=== PATIENT | male | born 1965 | race Caucasian/White ===

== ENCOUNTER → 2024-04-04 | Outpatient (CLI) | payer SELFPAY ==
[2024-04-04 14:49] LABS: T4, Free (Free Thyroxine) 1.22 ng/dL (0.80-1.80)
== END | disposition home or self-care (01) ==
LOC: LABWHC1 11:49
PROVIDERS: ATTEND Family Medicine
DX: F41.1 Generalized anxiety disorder (principal)
CPT/HCPCS: 36415; 84436; 84439; 84443; 84481

== ENCOUNTER 2024-08-14 19:19 | Inpatient (IN) | payer OTHER ==
--- NOTE | 2024-08-14 19:43 | ED ---
Abdominal Pain HPI - General Chief Complaint: Abdominal Pain Stated Complaint: ABD Pain Time Seen by Provider: 08/14/24 19:25 Source: patient, RN notes reviewed Mode of arrival: ambulatory Limitations: no limitations - History of Present Illness Initial Comments: This is a 58-year-old male who presents to the emergency department for abdominal pain. States that the pain started a couple of days ago. He is having difficulty urinating and is only going small amounts. Also having difficulty with bowel movements. He has been constipated for the last several days and only producing very small pieces of stool. He is also noted to have significant tremors on exam. His sister states that this may be a result of his psychiatric medication withdrawals. He does have an appointment with a neurologist next month. Additionally, they state that his thyroid is off and they just increased his medication dose due to his TSH being too high and wonder if that may be contributing to his symptoms. Abdominal pain is in the mid to lower abdomen, not worse on any particular side. He does have some associated nausea, denies any vomiting. MD Complaint: abdominal pain - Related Data Home Medications Medication Instructions Recorded Confirmed ALPRAZolam [Xanax] 2 mg PO TID 08/14/24 08/14/24 Cimetidine [Tagamet] 600 mg PO Q12H 08/14/24 08/14/24 Thyroid,Pork [Marine Service Station Attendant Thyroid 120] 120 mg PO DAILY 08/14/24 08/14/24 buPROPion XL [Wellbutrin XL] 150 mg PO DAILY 08/14/24 08/14/24 hydrOXYzine pamoate [Vistaril] 50 mg PO TID PRN 08/14/24 08/14/24 Allergies Allergy/AdvReac Type Severity Reaction Status Date / Time No Known Allergies Allergy Verified 08/14/24 19:52 Review of Systems ROS Statement: Those systems with pertinent positive or pertinent negative responses have been documented in the HPI. ROS Other: All systems not noted in ROS Statement are negative. Past Medical History Past Medical History: Thyroid Disorder Additional Past Medical History / Comment(s): tardive dyskinesia, panic disorder History of Any Multi-Drug Resistant Organisms: None Reported Past Surgical History: No Surgical Hx Reported Past Psychological History: Anxiety, Depression, Panic Disorder Smoking Status: Current every day smoker Past Alcohol Use History: None Reported Past Drug Use History: None Reported General Exam Limitations: no limitations General appearance: alert, in no apparent distress Head exam: Present: atraumatic, normocephalic, normal inspection Respiratory exam: Present: normal lung sounds bilaterally. Absent: respiratory distress, wheezes, rales, rhonchi, stridor Cardiovascular Exam: Present: regular rate, normal rhythm, normal heart sounds. Absent: systolic murmur, diastolic murmur, rubs, gallop, clicks GI/Abdominal exam: Present: soft, tenderness (Lower abdomen), normal bowel sounds. Absent: distended Neurological exam: Present: alert, oriented X3, CN II-XII intact, other (Whole body tremors) Psychiatric exam: Present: normal affect, normal mood Skin exam: Present: warm, dry, intact, normal color. Absent: rash Course Vital Signs 08/14/24 08/14/24 08/14/24 19:20 19:58 20:14 Temperature 97.9 F Pulse Rate 69 75 74 Respiratory 16 16 15 Rate Blood Pressure 121/80 101/84 122/92 O2 Sat by Pulse 98 96 96 Oximetry Medical Decision Making - Medical Decision Making This is a 58 year old male who presents to the emergency department for abdominal pain. Was pt. sent in by a medical professional or institution? @ -No Did you speak to anyone other than the patient for history? @ -His sister provided the information about his thyroid levels and tremors. Did you review nursing and triage notes? @ -Yes, and I agree, it is accurate with regards to the patient's symptoms. Were old charts reviewed? @ -No Differential Diagnosis? @ -Differential Abdominal Pain Men: Appendicitis, cholecystitis, diverticulosis, ischemic bowel, pancreatitis, hepatitis, UTI, gastroenteritis, AAA, incarcerated hernia, bowel obstruction, constipation, inflammatory bowel, hepatitis, peptic ulcer disease, splenic infarction, perforated viscus, testicular torsion, this is not meant to be an all-inclusive list EKG interpreted by me (3pts min.)? @ -EKG interpreted by me demonstrating the following: Sinus rhythm. Ventricular rate 60 bpm, [place] interval 166 ms, QRS duration 97 ms, QTc 429 ms. X-rays interpreted by me (1pt min.)? @ -Not obtained CT interpreted by me (1pt min.)? @ -CT scan of the abdomen and pelvis obtained. My interpretation identifies no evidence of bowel wall thickening or free air. U/S interpreted by me (1pt. min.)? @ -Not obtained What testing was considered but not performed? (CT, X-rays, U/S, labs)? Why? @ -None What meds were considered but not given? Why? @ -None Did you discuss the management of the patient with other professionals? @ -Yes, Dr. Mclaughlin, who accepts the patient for admission. Did you reconcile home meds? @ -Yes Was smoking cessation discussed for >3mins.? @ -No Was critical care preformed (if so, how long)? @ -No Were there social determinants of health that impacted care today? How? (Homelessness, low income, unemployed, alcoholism, drug addiction, transportation, low edu. Level, literacy, decrease access to med. care, custodial, rehab)? @ -No Was there de-escalation of care discussed even if they declined? (Discuss DNR or withdrawal of care, Hospice)? @ -No What co-morbidities impacted this encounter? (DM, HTN, Smoking, COPD, CAD, Cancer, CVA, Hep., AIDS, mental health diagnosis, sleep apnea, morbid obesity)? @ -Thyroid disorder, tardive dyskinesia Was patient admitted / discharged? @ -Admitted. Lab work demonstrates hyponatremia with a sodium of 122. TSH elevated at 44. Free T4 0.62. Bladder scan performed demonstrating 797 mL of urine. Irvin catheter was subsequently placed. Urinalysis negative for signs of infection. CT scan of the abdomen and pelvis reveals no acute intra- abdominal process. Patient and his sister deny any known problems with hyponatremia in the past. This could be related to the thyroid, the cause is not entirely clear at this point. However, given the level of the hyponatremia, patient was admitted to medicine for further management. Consult placed for nephrology. Case discussed with ED attending Dr. Zuluaga. Undiagnosed new problem with uncertain prognosis? @ -None Drug Therapy requiring intensive monitoring for toxicity (Heparin, Nitro, Insulin, Cardizem)? @ -None Were any procedures done? @ -None Diagnosis/symptom? @ -Hyponatremia Acute, or Chronic, or Acute on Chronic? @ -Acute Uncomplicated (without systemic symptoms) or Complicated (systemic symptoms)? @ -Complicated Side effects of treatment? @ -None Exacerbation, Progression, or Severe Exacerbation] @ -Not applicable Poses a threat to life or bodily function? @ -Yes, if his sodium continues to decrease it can have life threatening consequences - Lab Data Result diagrams: 08/14/24 19:53 08/14/24 19:53 Lab Results 08/14/24 08/14/24 08/14/24 Range/Units 19:53 19:53 19:53 WBC 7.5 (3.8-10.6) k/uL RBC 4.58 (4.30-5.90) m/uL Hgb 13.8 (13.0-17.5) gm/dL Hct 38.7 L (39.0-53.0) % MCV 84.4 (80.0-100.0) fL MCH 30.1 (25.0-35.0) pg MCHC 35.7 (31.0-37.0) g/dL RDW 11.2 L (11.5-15.5) % Plt Count 254 (150-450) k/uL MPV 6.3 Neutrophils % 51 % Lymphocytes % 34 % Monocytes % 8 % Eosinophils % 4 % Basophils % 1 % Neutrophils # 3.8 (1.3-7.7) k/uL Lymphocytes # 2.6 (1.0-4.8) k/uL Monocytes # 0.6 (0-1.0) k/uL Eosinophils # 0.3 (0-0.7) k/uL Basophils # 0.1 (0-0.2) k/uL Sodium 122 L (137-145) mmol/L Potassium 4.2 (3.5-5.1) mmol/L Chloride 91 L (98-107) mmol/L Carbon Dioxide 22 (22-30) mmol/L Anion Gap 9 mmol/L BUN 7 L (9-20) mg/dL Creatinine 0.95 (0.66-1.25) mg/dL Est GFR (CKD-EPI)AfAm >90 (>60 ml/min/1.73 sqM) Est GFR (CKD-EPI)NonAf 89 (>60 ml/min/1.73 sqM) Glucose 82 (74-99) mg/dL Plasma Lactic Acid Phill 0.7 (0.7-2.0) mmol/L Calcium 8.7 (8.4-10.2) mg/dL Phosphorus (2.5-4.5) mg/dL Magnesium (1.6-2.3) mg/dL Total Bilirubin 0.3 (0.2-1.3) mg/dL AST 34 (17-59) U/L ALT 27 (4-49) U/L Alkaline Phosphatase 61 (38-126) U/L Total Protein 7.0 (6.3-8.2) g/dL Albumin 4.3 (3.5-5.0) g/dL Amylase 43 (30-110) U/L Lipase 82 (23-300) U/L TSH 44.000 H (0.465-4.680) mIU/L Free T4 0.62 L (0.78-2.19) ng/dL Urine Color Urine Appearance (Clear) Urine pH (5.0-8.0) Ur Specific [place] (1.001-1.035) Urine Protein (Negative) Urine Glucose (UA) (Negative) Urine Ketones (Negative) Urine Blood (Negative) Urine Nitrite (Negative) Urine Bilirubin (Negative) Urine Urobilinogen (<2.0) mg/dL Ur Leukocyte Esterase (Negative) 08/14/24 08/14/24 Range/Units 19:53 20:00 WBC (3.8-10.6) k/uL RBC (4.30-5.90) m/uL Hgb (13.0-17.5) gm/dL Hct (39.0-53.0) % MCV (80.0-100.0) fL MCH (25.0-35.0) pg MCHC (31.0-37.0) g/dL RDW (11.5-15.5) % Plt Count (150-450) k/uL MPV Neutrophils % % Lymphocytes % % Monocytes % % Eosinophils % % Basophils % % Neutrophils # (1.3-7.7) k/uL Lymphocytes # (1.0-4.8) k/uL Monocytes # (0-1.0) k/uL Eosinophils # (0-0.7) k/uL Basophils # (0-0.2) k/uL Sodium (137-145) mmol/L Potassium (3.5-5.1) mmol/L Chloride (98-107) mmol/L Carbon Dioxide (22-30) mmol/L Anion Gap mmol/L BUN (9-20) mg/dL Creatinine (0.66-1.25) mg/dL Est GFR (CKD-EPI)AfAm (>60 ml/min/1.73 sqM) Est GFR (CKD-EPI)NonAf (>60 ml/min/1.73 sqM) Glucose (74-99) mg/dL Plasma Lactic Acid Phill (0.7-2.0) mmol/L Calcium (8.4-10.2) mg/dL Phosphorus 3.4 (2.5-4.5) mg/dL Magnesium 1.7 (1.6-2.3) mg/dL Total Bilirubin (0.2-1.3) mg/dL AST (17-59) U/L ALT (4-49) U/L Alkaline Phosphatase (38-126) U/L Total Protein (6.3-8.2) g/dL Albumin (3.5-5.0) g/dL Amylase (30-110) U/L Lipase (23-300) U/L TSH (0.465-4.680) mIU/L Free T4 (0.78-2.19) ng/dL Urine Color Colorless Urine Appearance Clear (Clear) Urine pH 6.5 (5.0-8.0) Ur Specific [place] 1.007 (1.001-1.035) Urine Protein Negative (Negative) Urine Glucose (UA) Negative (Negative) Urine Ketones Negative (Negative) Urine Blood Negative (Negative) Urine Nitrite Negative (Negative) Urine Bilirubin Negative (Negative) Urine Urobilinogen <2.0 (<2.0) mg/dL Ur Leukocyte Esterase Negative (Negative) - Radiology Data Radiology results: report reviewed, image reviewed Disposition Clinical Impression: Hyponatremia Disposition: ADMITTED IP TO THIS HOSP
[2024-08-14] MEDS: SODIUM CHLORIDE 0.9% 500 ML 500 ML IV STA (20:01)
[2024-08-14] MEDS: KETOROLAC 15 MG/ML 1 ML VIAL IVP STA (20:03)
[2024-08-14 20:05] LABS: Basophils # (A) 0.1 k/uL (0-0.2); Basophils % (A) 1 %; Eosinophils # (A) 0.3 k/uL (0-0.7); Eosinophils % (A) 4 %; HCT 38.7 % (39.0-53.0); HGB 13.8 gm/dL (13.0-17.5); Lymphocytes # (A) 2.6 k/uL (1.0-4.8); Lymphocytes % (A) 34 %; MCH 30.1 pg (25.0-35.0); MCHC 35.7 g/dL (31.0-37.0); MCV 84.4 fL (80.0-100.0); Mean Platelet Volume 6.3; Monocytes # (A) 0.6 k/uL (0-1.0); Monocytes % (A) 8 %; Neutrophils # (A) 3.8 k/uL (1.3-7.7); Neutrophils % (A) 51 %; Platelet Count 254 k/uL (150-450); RBC 4.58 m/uL (4.30-5.90); RDW 11.2 % (11.5-15.5); WBC 7.5 k/uL (3.8-10.6)
[2024-08-14] MEDS: ONDANSETRON 4 MG/2 ML VIAL IVP STA (20:05)
[2024-08-14] MEDS: diphenhydrAMINE 50 MG/ML 1 ML VIAL IVP STA (20:07)
[2024-08-14] MEDS: LORazepam 2 MG/ML INJ IV STA (20:08)
[2024-08-14 20:19] LABS: ALT 27 U/L (4-49); AST 34 U/L (17-59); African American GFR (CKD) >90 (>60 ml/min/1.73 sqM); Albumin 4.3 g/dL (3.5-5.0); Alkaline Phosphatase 61 U/L (38-126); Amylase 43 U/L (30-110); Anion Gap 9 mmol/L; Blood Urea Nitrogen 7 mg/dL (9-20); Calcium 8.7 mg/dL (8.4-10.2); Carbon Dioxide 22 mmol/L (22-30); Chloride 91 mmol/L (98-107); Glucose 82 mg/dL (74-99); Lipase 82 U/L (23-300); Non-African American GFR(CKD) 89 (>60 ml/min/1.73 sqM); Potassium 4.2 mmol/L (3.5-5.1); Sodium 122 mmol/L (137-145); Total Bilirubin 0.3 mg/dL (0.2-1.3)
[2024-08-14] MEDS: SODIUM CHLORIDE 0.9% 1,000 ML IV STA (20:39)
[2024-08-14 20:51] LABS: Appearance,Urine Clear (Clear); Bilirubin,Urine Negative (Negative); Blood,Urine Negative (Negative); Color,Urine Colorless; Glucose,Urine (UA) Negative (Negative); Ketones,Urine Negative (Negative); Leukocyte Esterase,Urine Negative (Negative); Nitrite,Urine Negative (Negative); PH, Urine 6.5 (5.0-8.0); Protein,Urine Negative (Negative); Specific Gravity,Urine 1.007 (1.001-1.035); Urobilinogen,Urine <2.0 mg/dL (<2.0)
[2024-08-14 20:56] LABS: Magnesium 1.7 mg/dL (1.6-2.3); Phosphorus 3.4 mg/dL (2.5-4.5)
--- NOTE | 2024-08-14 21:24 | CT ---
EXAMINATION TYPE: CT abdomen pelvis w con DATE OF EXAM: 08/14/2024 8:59 PM COMPARISON: None CLINICAL INDICATION: Male, 58 years old with history of abdominal pain, acute, nonlocalized; Here tod ay for stomach pains that started late yesterday. Sister also reports that he is suffering from "psyc h med withdrawal and tremors." TECHNIQUE: Axial CT abdomen pelvis w con;Sagittal and coronal reformats were created on a separate w orkstation. Contrast used:100 ml mL of Isovue 300 with IV Contrast, (none if empty) Oral contrast used: without Oral Contrast (none if empty) CT DLP: 688.4 mGycm, Automated exposure control for dose reduction was used. FINDINGS: LOWER CHEST: Unremarkable ABDOMEN LIVER: Unremarkable GALLBLADDER AND BILE DUCTS: Unremarkable. PANCREAS: Unremarkable. SPLEEN: Unremarkable. ADRENAL GLANDS: Unremarkable. KIDNEYS AND URETERS: No evidence of hydronephrosis or renal calculus. The ureters are unremarkable. PELVIS BLADDER: Distended urinary bladder with Irvin catheter in place. Gas in the bladder lumen likely seco ndary to Irvin catheter. REPRODUCTIVE: Unremarkable. ABDOMEN & PELVIS STOMACH AND BOWEL: No evidence of bowel obstruction. PERITONEUM/RETROPERITONEUM: No evidence of pneumoperitoneum or free fluid. VASCULATURE: Mild atherosclerotic calcifications are present throughout the abdominal aorta and its b ranches. No evidence of aortic aneurysm. MUSCULOSKELETAL: No acute osseous abnormalities. Mild disc degeneration changes are present throughou t the thoracolumbar spine. LYMPH NODES: No gross evidence for lymphadenopathy. SOFT TISSUE/ABDOMINAL WALL: Unremarkable IMPRESSION: 1. No evidence for acute upper abdominal process. 2. Irvin catheter in place with the central urinary bladder. Correlate for Irvin malfunction. 3. Small hiatal hernia. [facility], , 08/14/2024 9:21 PM
[2024-08-14] MEDS ORDERED: NALOXONE 0.4 MG/ML 1 ML VIAL IV PRN (21:32)
[2024-08-14] MEDS ORDERED: ACETAMINOPHEN TAB 325 MG TAB PO PRN (21:32)
[2024-08-14] MEDS ORDERED: ONDANSETRON 4 MG/2 ML VIAL IVP PRN (21:32)
[2024-08-14 21:47] LABS: T4, Free (Free Thyroxine) 0.62 ng/dL (0.78-2.19)
[2024-08-14] MEDS: FAMOTIDINE 20 MG TAB PO SCH (22:34)
[2024-08-14] MEDS: ALPRAZolam 1 MG TAB PO SCH (22:34)
[2024-08-15] MEDS: KETOROLAC 15 MG/ML 1 ML VIAL IVP PRN (01:37)
[2024-08-15] MEDS: HYDROcodone/APAP 5-325MG 1 EACH TAB PO PRN (05:30)
[2024-08-15] MEDS: PANTOPRAZOLE 40 MG/10 ML VIAL IV SCH (09:45)
[2024-08-15] MEDS: THYROID, PORK 30 MG TAB PO SCH (09:45)
[2024-08-15] MEDS: buPROPion XL 150 MG TAB.ER.24H PO SCH (09:45)
--- NOTE | 2024-08-15 11:23 | P.HPIM ---
History of Present Illness History of present illness; 58-year-old male with a past medical history of hypothyroidism, anxiety, depression, panic disorder, and tardive dyskinesia presents with complaints of abdominal pain. Patient reports for the last few da ys he has had abdominal pain that has progressively gotten worse. Patient reports the pain is located in the lower abdomen, characterizes it as a dull pain that does not radiate anywhere. Patient also admits during this time he has had tremors in the upper extremities that come and go. Patient reports he recently discontinued taking Prozac and Rexulti. Patient also reports his thyroid medication was recently changed and that he recently had a TSH level that was 22. Initial lab work from the ER was significant for WBC 7.5, hemoglobin 13.8, MCV 84.4, sodium 122, chloride 91, creatinine 0.95, TSH 44, free T40.62, UA noncontributory. EKG done in the ER showed heart rate of 60 bpm, no ST segment elevation or depression seen, no T-wave inversions seen. Sinus rhythm, possible right nilesh tricular conduction delay, QTc [address] ABD: No evidence for acute upper abdominal process, Irvin catheter in place with central urinary bladder, and small hiatal hernia. Patient admitted to internal medicine service REVIEW OF SYSTEMS: CONSTITUTIONAL: No fever, no malaise, no fatigue. HEENT: No recent visual problems or hearing problems. Denied any sore throat. CARDIOVASCULAR: No chest pain, orthopnea, PND, no palpitations, no syncope. PULMONARY: No shortness of breath, no cough, no hemoptysis. GASTROINTESTINAL: No diarrhea, no nausea, no vomiting, admits to abdominal pain. NEUROLOGICAL: No headaches, no weakness, no numbness, admits to tremors. HEMATOLOGICAL: Denies any bleeding or petechiae. GENITOURINARY: Denies any burning micturition, frequency, or urgency. MUSCULOSKELETAL/RHEUMATOLOGICAL: Denies any joint pain, swelling, or any muscle pain. ENDOCRINE: Denies any polyuria or polydipsia. The rest of the 14-point review of systems is negative. PHYSICAL EXAMINATION: GENERAL: The patient is alert and oriented x3, not in any acute distress. Well developed, well nourished. HEENT: Pupils are round and equally reacting to light. EOMI. No scleral icterus. No conjunctival pallor. Normocephalic, atraumatic. No pharyngeal erythema. No thyromegaly. CARDIOVASCULAR: S1 and S2 present. No murmurs, rubs, or gallops. PULMONARY: Chest is clear to auscultation b/l, no wheezing or crackles. ABDOMEN: Soft, nontender, nondistended, normoactive bowel sounds. No palpable organomegaly. MUSCULOSKELETAL: No joint swelling or deformity. EXTREMITIES: No cyanosis, clubbing, or pedal edema. NEUROLOGICAL: Gross neurological examination did not reveal any focal deficits. SKIN: No rashes. Assessment & Plan: Acute: #Hyponatremia: Potentially secondary to hypothyroidism versus medication side effect versus unknown etiology versus poor oral intake Patient was recently on Rexulti and Prozac, both which can cause SIADH, has since discontinued both medications. Currently holding fluids Ordered serum and urine osmolality, Urine sodium, and urine uric acid Based on results of urine testing and osmolality we will consider giving fluids Continue to monitor #Hypothyroidism: Increased [place] Thyroid 250 mg p.o. daily TSH 44 on admission, was 22 1 month ago Continue to monitor #Tremors: Potentially secondary to hypothyroidism versus/and hyponatremia Expect tremors to resolve with improvement in hyponatremia and better control of hypothyroidism Continue to monitor Chronic: #Anxiety: Continue home medication #Depression: Continue home medication F: None E: None N: Regular diet A: Normally ambulates unassisted DVT ppx: Lovenox 40 SQ daily GI ppx: Protonix 40 mg IV daily Dispo: Pending clinical course Jey Portillo MD PGY-1 FM Dictation was produced using [employer]ap[employer] dictation software. please excuse any grammatical, word or spelling errors. Past Medical History Past Medical History: Thyroid Disorder Additional Past Medical History / Comment(s): tardive dyskinesia, panic disorder History of Any Multi-Drug Resistant Organisms: None Reported Past Surgical History: No Surgical Hx Reported Past Psychological History: Anxiety, Depression, Panic Disorder Smoking Status: Current every day smoker Past Alcohol Use History: None Reported Past Drug Use History: None Reported Medications and Allergies Home Medications Medication Instructions Recorded Confirmed Type ALPRAZolam [Xanax] 2 mg PO TID 08/14/24 08/14/24 History Cimetidine [Tagamet] 600 mg PO Q12H 08/14/24 08/14/24 History Thyroid,Pork [Life Care Planner Thyroid 120] 120 mg PO DAILY 08/14/24 08/14/24 History buPROPion XL [Wellbutrin XL] 150 mg PO DAILY 08/14/24 08/14/24 History hydrOXYzine pamoate [Vistaril] 50 mg PO TID PRN 08/14/24 08/14/24 History Allergies Allergy/AdvReac Type Severity Reaction Status Date / Time No Known Allergies Allergy Verified 08/14/24 19:52 Physical Exam Vitals: Vital Signs Temp Pulse Resp BP Pulse Ox 08/15/24 05:23 100/72 08/15/24 05:19 97.8 F 68 17 96/71 100 08/15/24 01:30 97.7 F 68 16 120/85 98 08/14/24 20:14 74 15 122/92 96 08/14/24 19:58 75 16 101/84 96 08/14/24 19:20 97.9 F 69 16 121/80 98 Intake and Output 08/14/24 08/15/24 08/15/24 22:59 06:59 14:59 Output Total 1397 1775 Balance -1397 -1775 Output: Urine 600 1775 Uretheral (Irvin) 600 1775 Post Void Residual 797 Other: Weight 63.503 kg Results CBC & Chem 7: 08/14/24 19:53 08/14/24 19:53 Labs: Abnormal Lab Results - Last 24 Hours (Table) 08/14/24 08/14/24 Range/Units 19:53 19:53 Hct 38.7 L (39.0-53.0) % RDW 11.2 L (11.5-15.5) % Sodium 122 L (137-145) mmol/L Chloride 91 L (98-107) mmol/L BUN 7 L (9-20) mg/dL TSH 44.000 H (0.465-4.680) mIU/L Free T4 0.62 L (0.78-2.19) ng/dL
--- NOTE | 2024-08-15 12:17 | P.NPCON ---
History of Present Illness - Reason for Consult hyponatremia - History of Present Illness patient is a 58-year-old male with history of depression, hypothyroidism, tardive dyskinesia who is admitted to the hospital with complaints of abdominal pain. Patient also states that he was not able to pass urine and has had significant constipation for the past few days. CT of the abdomen showed distended bladder with Irvin catheter in place. Irvin catheter was placed in the ER. 1775 ml of urine documented. No previous history of hyponatremia. Patient denies any significant vomiting. Blood pressure was noted to be slightly low with systolic documented at 96 mmHg. No diuretics noted on home med list. Serum sodium was 120 to yesterday. No labs available from today. Patient did receive a fluid bolus in the ER yesterday. TSH was 44 with low T4 at 0.6. Patient has history of hypothyroidism Review of Systems as per HPI Past Medical History Past Medical History: Thyroid Disorder Additional Past Medical History / Comment(s): tardive dyskinesia, panic disorder History of Any Multi-Drug Resistant Organisms: None Reported Past Surgical History: No Surgical Hx Reported Past Psychological History: Anxiety, Depression, Panic Disorder Smoking Status: Current every day smoker Past Alcohol Use History: None Reported Past Drug Use History: None Reported Medications and Allergies Home Medications Medication Instructions Recorded Confirmed Type ALPRAZolam [Xanax] 2 mg PO TID 08/14/24 08/14/24 History Cimetidine [Tagamet] 600 mg PO Q12H 08/14/24 08/14/24 History Thyroid,Pork [Marketing Administrative Assistant Thyroid 120] 120 mg PO DAILY 08/14/24 08/14/24 History buPROPion XL [Wellbutrin XL] 150 mg PO DAILY 08/14/24 08/14/24 History hydrOXYzine pamoate [Vistaril] 50 mg PO TID PRN 08/14/24 08/14/24 History Allergies Allergy/AdvReac Type Severity Reaction Status Date / Time No Known Allergies Allergy Verified 08/14/24 19:52 Physical Exam Vitals: Vital Signs Temp Pulse Pulse Resp BP BP Pulse Ox 08/15/24 08:30 63 08/15/24 08:25 98.4 F 62 16 123/72 98 08/15/24 05:23 100/72 08/15/24 05:19 97.8 F 68 17 96/71 100 08/15/24 01:30 97.7 F 68 16 120/85 98 08/14/24 20:14 74 15 122/92 96 08/14/24 19:58 75 16 101/84 96 08/14/24 19:20 97.9 F 69 16 121/80 98 Intake and Output 08/14/24 08/15/24 08/15/24 22:59 06:59 14:59 Output Total 1397 1775 Balance -1397 -1775 Output: Urine 600 1775 Uretheral (Irvin) 600 1775 Post Void Residual 797 Other: Voiding Method Indwelling Catheter Weight 63.503 kg 63.503 kg patient is awake, comfortable, no acute distress. Examination of the heart S1 and S2 Examination of the lungs bilateral breath sounds are heard Abdomen is soft no major tenderness noted No edema noted in the lower extremities WATER HAULER exam is grossly intact Results - Lab Results Most recent lab results Calcium 8.7 mg/dL (8.4-10.2) 08/14/24 19:53 Phosphorus 3.4 mg/dL (2.5-4.5) 08/14/24 19:53 Magnesium 1.7 mg/dL (1.6-2.3) 08/14/24 19:53 08/14/24 19:53 08/14/24 19:53 Assessment and Plan Assessment: 1. Hyponatremia, euvolemic or hypovolemic. Status post normal saline fluid bolus in the ER. Check sodium today. This may also be related to significant hypothyroidism and urine retention. There is consideration for possible underlying SIADH however if serum sodium improves with normal saline, it is unlikely to be SIADH. Urine osmolality and urine sodium is pending. 2. Hypothyroidism with significantly elevated TSH. History of recent adjustm ent of dose as outpatient. 3. Urine retention status post Irvin catheter placement. Bladder appears to be distended with Irvin catheter on the CAT scan. A repeat bedside bladder scan will be ordered. 4. History of tardive dyskinesia Plan: check sodium and follow-up on urine osmolality. Check bladder scan Continue with Irvin catheter. Adjustment of Synthroid dose as per primary service. Thank you for the consultation. We will continue to follow the patient with you during his hospitalization.
[2024-08-15] MEDS: ENOXAPARIN 40 MG/0.4 ML SYRINGE SQ SCH (12:48)
[2024-08-15] MEDS: MORPHINE SULFATE 4 MG/ML SYRINGE IV PRN (13:34)
[2024-08-15] MEDS: NICOTINE 21MG/24HR PATCH TRANSDERM SCH (18:41)
[2024-08-16] MEDS: SODIUM CHLORIDE 0.9% 1,000 ML IV SCH (00:08)
[2024-08-16] MEDS: PANTOPRAZOLE 40 MG TABLET PO SCH (06:06)
[2024-08-16 06:37] LABS: African American GFR (CKD) >90 (>60 ml/min/1.73 sqM); Anion Gap 1 mmol/L; Blood Urea Nitrogen 10 mg/dL (9-20); Calcium 8.4 mg/dL (8.4-10.2); Carbon Dioxide 25 mmol/L (22-30); Chloride 104 mmol/L (98-107); Glucose 88 mg/dL (74-99); Non-African American GFR(CKD) >90 (>60 ml/min/1.73 sqM); Potassium 4.5 mmol/L (3.5-5.1); Sodium 130 mmol/L (137-145)
[2024-08-16] MEDS: THYROID, PORK 30 MG TAB PO SCH (08:39)
--- NOTE | 2024-08-16 12:17 | P.PN ---
Subjective patient is seen for follow-up for hyponatremia which is hypovolemic and improved with normal saline. Serum sodium is 130 today. Urine sodium was less than 20 with urine osmolality of 248. Patient has tremors of the upper extremities and the neck. Denies any numbness or tingling. Objective - Vital Signs Vital signs: Vital Signs Temp 97.9 F 08/15/24 20:00 Pulse 90 08/16/24 08:43 Resp 22 08/16/24 08:43 BP 112/68 08/16/24 08:43 Pulse Ox 98 08/16/24 08:43 FiO2 Intake & Output 08/15/24 08/16/24 08/16/24 18:59 06:59 18:59 Output Total 1800 1100 Balance -1800 -1100 Weight 63.503 kg Output: Urine 1800 1100 Other: Voiding Method Indwelling Catheter Indwelling Catheter Indwelling Catheter - Exam Patient is awake, comfortable, no acute distress. Examination of the heart S1 and S2 Examination of the lungs bilateral breath sounds are heard Abdomen is soft no major tenderness noted No edema noted in the lower extremities involuntary movements noted of posterior upper extremities - Labs CBC & Chem 7: 08/14/24 19:53 08/16/24 06:05 Labs: Abnormal Lab Results - Last 24 Hours (Table) 08/15/24 08/15/24 08/15/24 Range/Units 10:14 11:53 11:53 Sodium (137-145) mmol/L Osmolality 261 L (275-295) mOsm/kg Urine Osmolality 248 L (400-1100) mOsm/kg Ur Random Sodium (40-220) mmol/L Ur Random Uric Acid 19.2 L (37.0-92.0) mg/dL 08/15/24 08/15/24 08/16/24 Range/Units 11:53 12:18 06:05 Sodium 125 L 130 L (137-145) mmol/L Osmolality (275-295) mOsm/kg Urine Osmolality (400-1100) mOsm/kg Ur Random Sodium <20 L (40-220) mmol/L Ur Random Uric Acid (37.0-92.0) mg/dL Assessment and Plan Assessment: 1. Hyponatremia, hypovolemic. Improved with normal saline. Urine sodium less than 20 and urine osmolality of 248 2. Hypothyroidism with significantly elevated TSH. History of recent ad justment of dose as outpatient. 3. Urine retention status post Irvin catheter placement. Bladder appears to be distended with Irvin catheter on the CAT scan. A repeat bedside bladder scan will be ordered. 4. History of tardive dyskinesia Plan: continue with normal saline and repeat labs in a.m.
[2024-08-16] MEDS: hydrOXYzine pamoate 25 MG CAP PO PRN (14:10)
--- NOTE | 2024-08-16 20:34 | P.PN ---
Progress Note - Text Progress Note Date: 08/16/24 History of present illness; 58-year-old male with a past medical history of hypothyroidism, anxiety, depression, panic disorder, and tardive dyskinesia presents with complaints of abdominal pain. Patient reports for the last few days he has had abdominal pain that has progressively gotten worse. Patient reports the pain is located in the lower abdomen, characterizes it as a dull pain that does not radiate anywhere. Patient also admits during this time he has had tremors in the upper extremities that come and go. Patient reports he recently discontinued taking Prozac and Rexulti. Patient also reports his thyroid medication was recently changed and that he recently had a TSH level warren t was 22. Initial lab work from the ER was significant for WBC 7.5, hemoglobin 13.8, MCV 84.4, sodium 122, chloride 91, creatinine 0.95, TSH 44, free T40.62, UA noncontributory. EKG done in the ER showed heart rate of 60 bpm, no ST segment elevation or depression seen, no T-wave inversions seen. Sinus rhythm, possible right ventricular conduction delay, QTc [address] ABD: No evidence for acute upper abdominal process, Irvin catheter in place with central urinary bladder, and small hiatal hernia. Patient admitted to internal medicine service REVIEW OF SYSTEMS: CONSTITUTIONAL: No fever, no malaise, no fatigue. HEENT: No recent visual problems or hearing problems. Denied any sore throat. CARDIOVASCULAR: No chest pain, orthopnea, PND, no palpitations, no syncope. PULMONARY: No shortness of breath, no cough, no hemoptysis. GASTROINTESTINAL: No diarrhea, no nausea, no vomiting, admits to abdominal pain. NEUROLOGICAL: No headaches, no weakness, no numbness, admits to tremors. HEMATOLOGICAL: Denies any bleeding or petechiae. GENITOURINARY: Denies any burning micturition, frequency, or urgency. MUSCULOSKELETAL/RHEUMATOLOGICAL: Denies any joint pain, swelling, or any muscle pain. ENDOCRINE: Denies any polyuria or polydipsia. The rest of the 14-point review of systems is negative. August 16, 2024: Resting in bed. Patient stated he said been having tremors for about 3 weeks. Patient was taking Prozac and Rexulti which was for depression and this was discussed about 3 weeks ago. Since then patient tremors become rather significant. Patient is hard of hearing. Patient was placed a Irvin catheter in the ER. Patient had decreased appetite for last 2 3 days. Patient lives with his sister. Smokes couple cigarettes a day. Active Medications Acetaminophen (Acetaminophen Tab 325 Mg Tab) 650 mg PO Q6HR PRN PRN Reason: Mild Pain or Fever > 100.5 Hydrocodone Bitart/Acetaminophen (Hydrocodone/Apap 5-325mg 1 Each Tab) 1 each PO Q4HR PRN PRN Reason: Moderate Pain (Scale 4 to 6) Alprazolam (Alprazolam 1 Mg Tab) 2 mg PO TID [facility] Last Admin: 08/16/24 16:08 Dose: 2 mg Bupropion HCl (Bupropion Xl 150 Mg Tab.Er.24h) 150 mg PO DAILY [facility] Last Admin: 08/16/24 08:39 Dose: 150 mg Enoxaparin Sodium (Enoxaparin 40 Mg/0.4 Ml Syringe) 40 mg SQ DAILY [facility] Last Admin: 08/16/24 08:39 Dose: 40 mg Famotidine (Famotidine 20 Mg Tab) 40 mg PO Q12H [facility] Last Admin: 08/16/24 08:39 Dose: 40 mg Hydroxyzine Pamoate (Hydroxyzine Pamoate 25 Mg Cap) 50 mg PO TID PRN PRN Reason: Anxiety Last Admin: 08/16/24 14:10 Dose: 50 mg Sodium Chloride (Saline 0.9%) 1,000 mls @ 75 mls/hr IV .[id number] [facility] Last Admin: 08/16/24 16:09 Dose: 75 mls/hr Ketorolac Tromethamine (Ketorolac 15 Mg/Ml 1 Ml Vial) 15 mg IVP Q6HR PRN PRN Reason: Moderate Pain (Scale 4 to 6) Stop: 08/17/24 21:33 Last Admin: 08/15/24 01:37 Dose: 15 mg Naloxone HCl (Naloxone 0.4 Mg/Ml 1 Ml Vial) 0.2 mg IV Q2M PRN PRN Reason: Opioid Reversal Nicotine (Nicotine 21mg/24hr Patch) 1 patch TRANSDERM DAILY [facility] Last Admin: 08/16/24 08:40 Dose: Not Given Ondansetron HCl (Ondansetron 4 Mg/2 Ml Vial) 4 mg IVP Q8HR PRN PRN Reason: Nausea And Vomiting Pantoprazole Sodium (Pantoprazole 40 Mg Tablet) 40 mg PO AC-BRKFST [facility] Last Admin: 08/16/24 06:06 Dose: 40 mg Thyroid (Thyroid, Pork 30 Mg Tab) 150 mg PO DAILY [facility] Last Admin: 08/16/24 08:39 Dose: 150 mg On examination: VITAL SIGNS: [Afebrile, 90, 22, 112 x 68, 98% room air] GENERAL APPEARANCE: BMI 22.6, reclining in bed HEENT: Normal external appearance of nose and ear. Oral cavity normal. Decreased hearing EYES: Pupils equal. Conjunctiva normal. NECK: JVD not raised. Mass not palpable. RESPIRATORY: Respiratory effort normal. Lungs clear to auscultation. CARDIOVASCULAR: First and second sounds normal. No edema. ABDOMEN: Soft. Liver and spleen not palpable. No tenderness. No mass palpable. PSYCHIATRY: Alert and oriented x3. Mood and affect normal. Neurological: Intermittent tremors. INVESTIGATIONS, reviewed in the clinical context: August 16: Sodium 130 potassium 4.5 creatinine 0.74 August 07: Serum osmolality 261 August 14: White count 7.5 hemoglobin 13.8 sodium 122 potassium 4.2. TSH 44.0. Free T40.62 Cortisol 2.8. Urine osmolality 210 urine random sodium less than 20 CT scan abdomen pelvis: Remarkable Assessment & Plan: Acute: # Severe hyponatremia, with hypoosmolar with hypovolemia: Potentially secondary to hypothyroidism versus medication side effect versus unknown etiology versus poor oral intake: Improving Patient was recently on Rexulti and Prozac, both which can cause SIADH, has since discontinued both medications. Currently holding fluids Nephrology following. #Hypothyroidism: Uncontrolled Increased [place] Thyroid 250 mg p.o. daily TSH 44 on admission, was 22 1 month ago Continue to monitor #Tremors: Patient says started when Rexulti and Prozac was discontinued about 3 weeks ago. Neurology consulted -Irvin catheter was placed in the ER for urine outflow obstruction Trial of DARON Markhamey, will check residuals #Anxiety: Xanax #Depression: Wellbutrin Discussed with patient. Awaiting input from neurology. Past Medical History Past Medical History: Thyroid Disorder Additional Past Medical History / Comment(s): tardive dyskinesia, panic disorder History of Any Multi-Drug Resistant Organisms: None Reported Past Surgical History: No Surgical Hx Reported Past Psychological History: Anxiety, Depression, Panic Disorder Smoking Status: Current every day smoker Past Alcohol Use History: None Reported Past Drug Use History: None Reported
--- NOTE | 2024-08-17 12:35 | P.PN ---
Subjective patient is seen for follow-up for hyponatremia which is hypovolemic and improved with normal saline. Serum sodium is 135 today. Urine sodium was less than 20 with urine osmolality of 248. Patient has tremors of the upper extremities and the neck. Denies any numbness or tingling. Objective - Vital Signs Vital signs: Vital Signs Temp 98.0 F 08/17/24 07:32 Pulse 70 08/17/24 07:32 Resp 15 08/17/24 07:32 BP 120/74 08/17/24 07:32 Pulse Ox 96 08/17/24 07:32 FiO2 Intake & Output 08/16/24 08/17/24 08/17/24 18:59 06:59 18:59 Output Total 800 Balance -800 Output: Urine 800 Other: Voiding Method Indwelling Catheter Toilet # Voids 1 2 - Exam Patient is awake, comfortable, no acute distress. Examination of the heart S1 and S2 Examination of the lungs bilateral breath sounds are heard Abdomen is soft no major tenderness noted No edema noted in the lower extremities involuntary movements noted of posterior upper extremities - Labs CBC & Chem 7: 08/14/24 19:53 08/17/24 10:38 Labs: Abnormal Lab Results - Last 24 Hours (Table) 08/17/24 Range/Units 10:38 Sodium 135 L (137-145) mmol/L Assessment and Plan Assessment: 1. Hyponatremia, hypovolemic. Improved with normal saline. Urine sodium less than 20 and urine osmolality of 248 2. Hypothyroidism with significantly elevated TSH. History of recent adjustment of dose as outpatient. 3. Urine retention status post Irvin catheter placement. Bladder appears to be distended with Irvin catheter on the CAT scan. A repeat bedside bladder scan will be ordered. 4. History of tardive dyskinesia Plan: continue with normal saline and repeat labs in a.m. Eencouraged to increase oral intake
[2024-08-17 13:55] VITALS: BP 125/78; PULSE 68; RESP 17; TEMP 97.5
[2024-08-17] MEDS: PRIMIDONE 25 MG TAB PO STA (15:49)
--- NOTE | 2024-08-17 19:02 | P.DS ---
Providers Date of admission: 08/14/24 21:30 Expected date of discharge: 08/17/24 Attending physician: Budyd Avalos Consults: 08/14/24 21:32 Consult Physician Urgent Consulting Provider: Seth Mancuso Consult Reason/Comments: Hyponatremia Do you want consulting provider notified?: Yes 08/16/24 10:28 Consult Physician Routine Consulting Provider: Kami Thomas Consult Reason/Comments: tremors Do you want consulting provider notified?: Yes Primary care physician: Zay Huizarrien [facility] Course: History of present illness; 58-year-old male with a past medical history of hy pothyroidism, anxiety, depression, panic disorder, and tardive dyskinesia presents with complaints of abdominal pain. Patient reports for the last few days he has had abdominal pain that has progressively gotten worse. Patient reports the pain is located in the lower abdomen, characterizes it as a dull pain that does not radiate anywhere. Patient also admits during this time he has had tremors in the upper extremities that come and go. Patient reports he recently discontinued taking Prozac and Rexulti. Patient also reports his thyroid medication was recently changed and that he recently had a TSH level that was 22. Initial lab work from the ER was significant for WBC 7.5, hemoglobin 13.8, MCV 84.4, sodium 122, chloride 91, creatinine 0.95, TSH 44, free T40.62, UA noncontributory. EKG done in the ER showed heart rate of 60 bpm, no ST segment elevation or depression seen, no T-wave inversions seen. Sinus rhythm, possible right ventricular conduction delay, QTc [address] ABD: No evidence for acute upper abdominal process, Irvni catheter in place with central urinary bladder, and small hiatal hernia. Patient admitted to internal medicine service REVIEW OF SYSTEMS: CONSTITUTIONAL: No fever, no malaise, no fatigue. HEENT: No recent visual problems or hearing problems. Denied any sore throat. CARDIOVASCULAR: No chest pain, orthopnea, PND, no palpitations, no syncope. PULMONARY: No shortness of breath, no cough, no hemoptysis. GASTROINTESTINAL: No diarrhea, no nausea, no vomiting, admits to abdominal pain. NEUROLOGICAL: No headaches, no weakness, no numbness, admits to tremors. HEMATOLOGICAL: Denies any bleeding or petechiae. GENITOURINARY: Denies any burning micturition, frequency, or urgency. MUSCULOSKELETAL/RHEUMATOLOGICAL: Denies any joint pain, swelling, or any muscle pain. ENDOCRINE: Denies any polyuria or polydipsia. The rest of the 14-point review of systems is negative. August 16, 2024: Resting in bed. Patient stated he said been having tremors for about 3 weeks. Patient was taking Prozac and Rexulti which was for depression and this was discussed about 3 weeks ago. Since then patient tremors become rather significant. Patient is hard of hearing. Patient was placed a Irvin catheter in the ER. Patient had decreased appetite for last 2 3 days. Patient lives with his sister. Smokes couple cigarettes a day. August 17: Patient's tremors are not addressed. Goes from 1 side to the other side. Patient anxious. No rigidity or cogwheel action. Tremors were discussed with Dr. Thomas from neurology. Not felt to be parkinsonian or familiar. 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 Will give a trial of primidone. Patient was given her first dose of 25 mg here. Then to be discharged on 25 mg twice daily. Depending on clinical response this can be titrated by the PCP. Sodium has come up to 135. Patient follow-up with nephrology outpatient. Discussed with the sister. Also told patient to increase his l food intake. Patient dose of [place] Thyroid was increased Discussion and discharge planning more than 35 minutes On examination: VITAL SIGNS: 97.5, 68, 17, 125 x 78, 97% room air GENERAL APPEARANCE: Up in chair, comfortable HEENT: Normal external appearance of nose and ear. Oral cavity normal. Decreased hearing EYES: Pupils equal. Conjunctiva normal. NECK: JVD not raised. Mass not palpable. RESPIRATORY: Respiratory effort normal. Lungs clear to auscultation. CARDIOVASCULAR: First and second sounds normal. No edema. ABDOMEN: Soft. Liver and spleen not palpable. No tenderness. No mass palpable. PSYCHIATRY: Alert and oriented x3. Mood and affect normal. Neurological: Intermittent tremors. From 1 side of the left side. Not ad dressed. INVESTIGATIONS, reviewed in the clinical context: July 31: Sodium 135 August 16: Sodium 130 potassium 4.5 creatinine 0.74 August 07: Serum osmolality 261 August 14: White count 7.5 hemoglobin 13.8 sodium 122 potassium 4.2. TSH 44.0. Free T40.62 Cortisol 2.8. Urine osmolality 210 urine random sodium less than 20 CT scan abdomen pelvis: Remarkable Assessment & Plan: Acute: # Severe hyponatremia, with hypoosmolar with hypovolemia: Potentially secondary to hypothyroidism versus medication side effect versus unknown etiology versus poor oral intake: Better Patient was recently on Rexulti and Prozac, both which can cause SIADH, has since discontinued both medications. Restriction of fluids Follow-up outpatient with Dr. Allen #Hypothyroidism: Uncontrolled Increased [place] Thyroid 150 mg p.o. 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 Start primidone 25 mg twice daily. To be titrated outpatient by PCP. Follow-up with Dr. Sameer Day neurology outpatient -Irvin catheter was placed in the ER for urine outflow obstruction-discontinued. Patient making good urine. #Anxiety: Xanax #Depression: Wellbutrin Disposition: Home Past Medical History Past Medical History: Thyroid Disorder Additional Past Medical History / Comment(s): tardive dyskinesia, panic disorder History of Any Multi-Drug Resistant Organisms: None Reported Past Surgical History: No Surgical Hx Reported Past Psychological History: Anxiety, Depression, Panic Disorder Smoking Status: Current every day smoker Past Alcohol Use History: None Reported Past Drug Use History: None Reported Plan - Discharge Summary Discharge Rx Participant: Yes New Discharge Prescriptions: New Thyroid, Pork [[place] Thyroid] 30 mg PO DAILY #30 tab Nicotine 21Mg/24Hr Patch [Habitrol] 1 patch TRANSDERM DAILY #30 patch Primidone [Mysoline] 25 mg PO BID #60 dose Pantoprazole [Protonix] 40 mg PO AC-BRKFST #30 tab Continue hydrOXYzine pamoate [Vistaril] 50 mg PO TID PRN PRN Reason: Anxiety buPROPion XL [Wellbutrin XL] 150 mg PO DAILY Thyroid,Pork [[employer] Thyroid] 120 mg PO DAILY ALPRAZolam [Xanax] 2 mg PO TID traZODone HCL [Desyrel] 50 mg PO HS Discontinued Cimetidine [Tagamet] 600 mg PO Q12H Discharge Medication List ALPRAZolam [Xanax] 2 mg PO TID 08/14/24 [History] Thyroid,Pork [[employer] Thyroid] 120 mg PO DAILY 08/14/24 [History] buPROPion XL [Wellbutrin XL] 150 mg PO DAILY 08/14/24 [History] hydrOXYzine pamoate [Vistaril] 50 mg PO TID PRN 08/14/24 [History] Nicotine 21Mg/24Hr Patch [Habitrol] 1 patch TRANSDERM DAILY #30 patch 08/17/24 [Rx] Pantoprazole [Protonix] 40 mg PO AC-BRKFST #30 tab 08/17/24 [Rx] Primidone [Mysoline] 25 mg PO BID #60 dose 08/17/24 [Rx] Thyroid, Pork [[place] Thyroid] 30 mg PO DAILY #30 tab 08/17/24 [Rx] traZODone HCL [Desyrel] 50 mg PO HS 08/17/24 [History] Follow up Appointment(s)/Referral(s): Evita Allen MD [STAFF PHYSICIAN] - 2 Weeks (office not answering Please call office to schedule appointment ) Zay Gruber DO [Primary Care Provider] - 1-2 days (Please call office to get a new Primary Doctor) Sameer Day MD [STAFF PHYSICIAN] - 2 Weeks (office will call with appointment) Activity/Diet/Wound Care/Special Instructions: fluid restrict 1800 cc/day Discharge Disposition: HOME SELF-CARE
--- NOTE | 2024-08-22 11:37 | P.CNNES ---
History of Present Illness Consult date: 08/17/24 Requesting physician: Buddy Avalos Reason for Consult: Tremors History of Present Illness: Patient is a 58-year-old male came to the hospital on 08/14/2024 at 5:19 PM for new onset tremors. Patient's sister Pallavi was on the phone who also provided with a history. Patient's also arrived during middle of the consultation. Apparently patient has developed new onset tremors since 07/01/2024. Patient has history of anxiety disorder. Patient's family is concerned if his tremors are related to the use of psychotropic medication. Patient was started on Wellbutrin in February 2024. He was prescribed Rexulti 1 mg daily from 03/22/2024 and discontinued on 06/17/2024. He was given Prozac on 05/20/2024 for 6 weeks, and discontinued on 07/07/2024. He has been taking trazodone 50 mg at bedtime for about 1-2 years. He was at first given Ativan in February 2024, then switch to Xanax 2 mg 3 times a day for anxiety since March 2024. On looking at these records, family believes that the tremors started about 2 weeks after stopping Rexulti. Patient was given benztropine at one point, but he has never tried it. Patient is taking hydroxyzine 50 mg 3 times a day when necessary, which also has anticholinergic effect. It also appears patient was given propranolol 10 mg twice a day on 07/07/2024, stopped on 07/15/2024 it was not working for tremors. His tremors were in the upper body mostly but now it is "all over". He feels nauseous, weak. On the records family brought, it appears patient was diagnosed with neuroleptic induced tardive dyskinesia by Arnulfo Astorga.Garrett on 07/14/2024. Panic dis order with agoraphobia by the same doctor on 05/30/2024, also has acquired hypothyroidism, anxiety, hypothyroidism and depressive disorder. Patient has an appointment with neurologist Dr. Nick Cross on 09/09/2024. Patient's blood test shows normal CBC, sodium was 122, potassium normal. Hepati c and renal functions normal. TSH 44, free T40.62. Cortisol level is low 2.8. Urine osmolality is low 210. Patient's sodium has improved 135. Patient had CT abdomen pelvis, which revealed no evidence for acute upper abdominal process. Irvin catheter in place with a central urinary bladder. Correlate for malfunction. Home medications include hydroxyzine, Wellbutrin 150 mg daily, pork thyroid, Xanax 2 mg 3 times daily, Tagamet and trazodone 50 mg at bedtime. Review of Systems All pertinent positive and negative uses a mention this. Otherwise unremarkable. Past Medical History Past Medical History: Thyroid Disorder Additional Past Medical History / Comment(s): tardive dyskinesia, panic disorder History of Any Multi-Drug Resistant Organisms: None Reported Past Surgical History: No Surgical Hx Reported Past Psychological History: Anxiety, Depression, Panic Disorder Smoking Status: Current every day smoker Past Alcohol Use History: None Reported Past Drug Use History: None Reported Medications and Allergies Home Medications Medication Instructions Recorded Confirmed Type ALPRAZolam [Xanax] 2 mg PO TID 08/14/24 08/14/24 History Thyroid,Pork [[employer] Risk Specialist Thyroid] 120 mg PO DAILY 08/14/24 08/14/24 History buPROPion XL [Wellbutrin XL] 150 mg PO DAILY 08/14/24 08/14/24 History hydrOXYzine pamoate [Vistaril] 50 mg PO TID PRN 08/14/24 08/14/24 History Nicotine 21Mg/24Hr Patch [Habitrol] 1 patch TRANSDERM DAILY #30 patch 08/17/24 Rx Pantoprazole [Protonix] 40 mg PO AC-BRKFST #30 tab 08/17/24 Rx Primidone [Mysoline] 25 mg PO BID #60 dose 08/17/24 Rx Thyroid, Pork [[place] Thyroid] 30 mg PO DAILY #30 tab 08/17/24 Rx traZODone HCL [Desyrel] 50 mg PO HS 08/17/24 08/17/24 History Allergies Allergy/AdvReac Type Severity Reaction Status Date / Time No Known Allergies Allergy Verified 08/14/24 19:52 Physical Examination - Vital Signs Vital Signs: Vital Signs Temp Pulse Resp BP Pulse Ox 08/17/24 07:32 98.0 F 70 15 120/74 96 08/17/24 02:00 97.9 F 70 13 137/84 96 10/29/24 19:53 15 08/16/24 19:33 98 F 70 15 133/82 98 08/16/24 14:00 99 18 116/55 96 Intake and Output 08/16/24 08/17/24 08/17/24 22:59 06:59 14:59 Other: Voiding Method Toilet # Voids 1 2 Patient is a middle-aged male, in no acute distress. Patient is alert awake oriented to time place and person. Speech and language functions are normal. Patient can name and repeat very well. No aphasia or dysarthria. Attention, concentration and fund of knowledge is adequate. Detail cognitive function testing deferred. On cranial nerve examination, pupils are equal, round and reacting to light, visual ayoub are full on confrontation, with no neglect on double simultaneous stimulation. Extraocular muscles are intact with no nystagmus. Face is symmetric, tongue protrudes to the midline. Palatal elevation and sensation normal, hearing and shoulder shrug normal, facial sensation normal. On muscle strength testing, there is no pronator drift and the strength is normal in arms and legs distally and proximally. Deep tendon reflexes are symmetric 2+3 at brachioradialis, 2+3 at the biceps, 2+ at the knees, 2+ ankles and plantars downgoing bilaterally. Sensory to touch is equal with no neglect on double simultaneous stimulation. Cerebellar function showed no ataxia for [id number] testing. No dysdiadochokinesia. No ataxia for [id number] testing on either side. Tone is normal with no evidence of rigidity and bulk of muscles normal. Patient has very unusual tremors. As I entered the room, patient was laying comfortably quiet in the room. As we started talking about tremors, the tremors started coming up. The tremors would go away often with distraction, and becomes much more pronounced when it is being discussed. It involves one ex tremity, all the other, sometimes it involves the whole body, and that he tires out and lays flat exhausted. Appears to have some functional component at times. It definitely gets more prominent when attention given to it. There is no involvement of the facial buccal region. Sometimes he moves his head as well and the tremor form. The tremors are arrhythmic, involves different muscles in different directions at times. Patient is not bradykinesia, was able to get up from the bed without difficulty. No bradykinesia. Gait: Patient able to get up from the bed without any problem. He started having some tremoring and jerking of his body, very atypical, appears somewhat functional pattern. On general examination, there is no carotid bruit or murmur, S1-S2 audible. Chest is clear on consultation. Abdomen is soft nontender. No organomegaly, bowel sounds present. Peripheral pulses are present. No peripheral edema. Results - Laboratory Findings CBC and BMP: 08/14/24 19:53 08/17/24 10:38 Abnormal Lab Findings: Abnormal Labs 08/14/24 08/14/24 08/14/24 19:53 19:53 19:53 Hct 38.7 L RDW 11.2 L Sodium 122 L Chloride 91 L BUN 7 L Osmolality TSH 44.000 H Free T4 0.62 L Cortisol 2.8 L Urine Osmolality Ur Random Sodium Ur Random Uric Acid 08/14/24 08/15/24 08/15/24 20:00 10:14 11:53 Hct RDW Sodium Chloride BUN Osmolality 261 L TSH Free T4 Cortisol Urine Osmolality 210 L 248 L Ur Random Sodium Ur Random Uric Acid 08/15/24 08/15/24 08/15/24 11:53 11:53 12:18 Hct RDW Sodium 125 L Chloride BUN Osmolality TSH Free T4 Cortisol Urine Osmolality Ur Random Sodium <20 L Ur Random Uric Acid 19.2 L 08/16/24 08/17/24 06:05 10:38 Hct RDW Sodium 130 L 135 L Chloride BUN Osmolality TSH Free T4 Cortisol Urine Osmolality Ur Random Sodium Ur Random Uric Acid Assessment and Plan Assessment: * New onset tremors, unclear cause in etiology. Patient has been on Rexulti 1 mg daily from 03/22/2024 and discontinued on 06/17/2024. This has been discontinued for almost 6 weeks and the tremors have not improved, therefore probably not related to Rexulti. Patient does not have extrapyramidal features at this time. The tremors are not typical of tardive dyskinesia. Appears to be some psychogenic component, as it gets more prominent as the tremors are being discussed, and the tremors at times goes away when patient is distracted. The tremors do not occur when he is sleeping. No parkinsonian features noted on examination. * Hyponatremia, with sodium 122 on arrival * Hypothyroidism * Anxiety disorder * Very high-dose Xanax used 2 mg 3 times a day. * Anxiety, depression Plan: * Patient's tremors are of unclear cause. He does not have parkinsonian features, therefore benztropine probably did not help. He already has urinary retention, which can get worse with benztropine. Patient is taking hydroxyzine, which also have anticholinergic effect without improvement of the tremors. * Patient has failed propranolol 10 mg twice a day. Patient will be tried on Mysoline 50 mg tablet, half tablet daily for a week and if no improvement, increase to 1 tablet. * Patient has an appointment with neurologist Dr. Nick Cross on 09/09/2024. If the tremors persist, may benefit from referral to movement disorder specialist. * Patient, his sister and were informed that he is taking very high-dose of Xanax 2 mg 3 times a day. He should never stop it cold turkey otherwise will have a high risk for a seizure. He should always be slowly weaned off from Xanax, if ever decided to take off and in fact should be considered for an alternate medication for anxiety rather than Xanax. He should continue to follow up closely with his psychiatrist. 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 Most recent sodium 135. * Patient's TSH is 44.00, free T4 0.62, cortisol also low 2.8. We will defer to IM to address these issues. * Discussed with primary physician. * Neurologically clear for discharge. Thank you for the consult. Time with Patient: Greater than 30
== END 2024-08-17 16:21 | disposition home or self-care (01) | DRG 426 ==
LOC: EC 19:19 → 5NMEDONC 21:30 → 1SOBS 08-15 07:05 → 4SSUR 08-16 21:37
PROVIDERS: ADMIT Hospitalist; ATTEND Hospitalist
DX: E87.1 Hypo-osmolality and hyponatremia (principal); G25.2 Other specified forms of tremor; N13.9 Obstructive and reflux uropathy, unspecified; E03.9 Hypothyroidism, unspecified; E86.1 Hypovolemia; F17.210 Nicotine dependence, cigarettes, uncomplicated; F32.A Depression, unspecified; F40.01 Agoraphobia with panic disorder; Z79.890 Hormone replacement therapy; Z79.899 Other long term (current) drug therapy
CPT/HCPCS: 36415; 51798; 74177; 80048; 80053; 81003; 82150; 82533; 83605; 83690; 83735; 83930; 83935; 84100; 84295; 84300; 84439; 84443; 84560; 85025; 93005; 96374; 96375; 96376; 99285